=== PATIENT | male | born 1995 ===

== ENCOUNTER 2024-08-30 10:05 | Emergency (ER) | payer OTHER, SELFPAY ==
[2024-08-30 10:20] VITALS: BP 131/69; PULSE 112; RESP 18; TEMP 36.9; O2SAT 96; BMI 38.7
--- NOTE | 2024-08-30 10:45 | CRLHL7_ITS ---
For Patients: As a result of the Century Cures Act, medical imaging exams and procedure reports are released immediately into your electronic medical record. You may view this report before your referring provider. If you have questions, please contact your health care provider. INDICATION: Epigastric and periumbilical pain. COMPARISON: None. TECHNIQUE: CT of the abdomen and pelvis with intravenous contrast. Multiplanar axial, coronal, and sagittal reformats were reconstructed. Contrast: 132 mL Isovue 370. FINDINGS: Lung bases: Normal. Liver: Normal. No mass. Gallbladder and bile ducts: Normal gallbladder. No bile duct dilation. Pancreas: Normal. Spleen: Normal. Adrenal glands: Normal. Kidneys: Normal parenchyma. No cyst or solid mass. No calculi. No urinary tract dilation. Urinary bladder: Normal. Pelvis: No cyst or mass. Vessels: Normal. Bowel: No dilated or inflamed bowel. Normal appendix. Moderate stool burden. Lymph nodes: No adenopathy. Peritoneum: No ascites. Abdominal wall: No hernia. Bones: No fractures. No focal worrisome bone lesions. IMPRESSION: Normal CT of the abdomen and pelvis. Please note that all CT scans at this facility use dose modulation, iterative reconstruction, and/or weight-based dosing when appropriate to reduce radiation dose to as low as reasonably achievable. Dictated by Carla Gordon MD @ 08/30/2024 11:47:26 AM (Electronically Signed)
[2024-08-30] MEDS: 0.9 % SODIUM CHLORIDE 1000 ml 1,000 ML IV (10:59)
[2024-08-30] MEDS: KETOROLAC 15 MG/ML inj IVP (10:59)
[2024-08-30] MEDS: ONDANSETRON 2 MG/ML inj 4 MG IVP (10:59)
--- NOTE | 2024-08-30 11:02 | ED_ITS ---
HPI - General Adult General Date Seen: 08/30/24 Chief complaint: Nausea/Vomiting Stated complaint: vomiting/food poisoning? Time Seen by Provider: 08/30/24 10:43 Source: patient Mode of arrival: ambulatory Limitations: no limitations History of Present Illness HPI narrative: Patient is a 29-year-old male with previous medical history of inguinal hernia repair when he was a child presenting to the emergency department for nausea, vomiting, abdominal pain. States he has not and that he drink anything since then because makes him nauseated and vomited. He still nauseated at this time. He is starting to feel dehydrated. States he has has been divided headache since the symptoms started this morning feel sick previous migraines he has had. He thinks it is from his dehydration. States he is feeling slightly lightheaded at this time. She is also having some abdominal pain worse in the epigastric region but also does around the periumbilical area. The nausea and vomiting started around 02:30 but the abdominal pain started around midnight. No other abdominal surgeries. No on else has been sick around him that he is aware of. Denies diarrhea constipation is to call our intent, fevers, chills. Does not use marijuana. No other concerns noted Related Data Home Medications ?Medication ?Instructions ?Recorded ?Confirmed No Known Home Medications 08/12/24 08/30/24 Allergies Allergy/AdvReac Type Severity Reaction Status Date / Time No Known Drug Allergies Allergy Verified 08/30/24 10:28 Review of Systems Status of ROS: Reports: 10 or more systems reviewed and unremarkable except as noted in History and below [facility] Social History Smoking Status: Never smoker How often do you have a drink containing alcohol: never How often do you have six or more drinks on one occasion: Never AUDIT-C Alcohol total score: 0 Non-prescribed substance use: denies use service: No Exam Narrative: Exam Narrative: Const: Well-nourished, Well-developed, in mild distress Eyes: PERRL, no conjunctival injection, and symmetrical lids HENT: Atraumatic external nose and ears. Moist mucous membranes. Neck: Symmetric, trachea midline, No thyromegaly. CVS: Tachycardic, No murmurs or gallops. Peripheral pulses 2+ and equal in all extremities RESP: Unlabored respiratory effort. Clear to auscultation bilaterally. GI: Tenderness in the epigastric region and periumbilical region. Worse in epigastric. Nondistended, No rebound or guarding. MSK:Extremities w/o deformity, Normal Active ROM Skin: Warm, Dry. No rashes or lesions. Neuro: Normal Muscle tone, No focal neurological deficits. Psych: Awake, Alert, & Oriented x3. Appropriate mood and affect. Const: Vital Signs, click to edit/add: Vital Signs - 24 hr 08/30/24 10:20 Temperature 98.5 F Pulse Rate [Right Pulse Oximeter] 112 H Respiratory Rate 18 Blood Pressure [Ri ght Upper Arm] 131/69 Pulse Oximetry 96 Oxygen Delivery Me thod Room Air Course Vital Signs Vital signs: Initial Vital Signs Temperature 98.5 F 08/30/24 10:20 Temperature Source Temporal Artery Scan 08/30/24 10:20 Pulse Rate 112 H 08/30/24 10:20 Pulse Rhythm Regular 08/30/24 10:20 Pulse Strength 3+ Normal 08/30/24 10:20 Respiratory Rate 18 08/30/24 10:20 Blood Pressure 131/69 08/30/24 10:20 Blood Pressure Mean 89 08/30/24 10:20 Blood Pressure Position Sitting 08/30/24 10:20 Pulse Oximetry 96 08/30/24 10:20 Oxygen Delivery Method Room Air 08/30/24 10:20 Vital Signs Temperature 98.5 F 08/30/24 10:20 Pulse Rate 112 H 08/30/24 10:20 Respiratory Rate 18 08/30/24 10:20 Blood Pressure 131/69 08/30/24 10:20 Pulse Oximetry 96 08/30/24 10:20 Oxygen Delivery Method Room Air 08/30/24 10:20 Temperature 98.5 F 08/30/24 10:20 Pulse Rate 112 H 08/30/24 10:20 Respiratory Rate 18 08/30/24 10:20 Blood Pressure 131/69 08/30/24 10:20 Pulse Oximetry 96 08/30/24 10:20 Oxygen Delivery Method Room Air 08/30/24 10:20 Medications Administered Medications: Discontinued Medications Generic Name Dose Route Start Last Admin Trade Name Freq PRN Reason Stop Dose Admin Sodium Chloride 1,000 mls @ 1,000 mls/hr 08/30/24 10:45 08/30/24 10:59 0.9 % Sodium Chloride 1000 Ml IV 08/30/24 11:44 1,000 mls/hr .Q1H LOULOU Administration Ketorolac Tromethamine 15 mg 08/30/24 10:44 08/30/24 10:59 Ketorolac 15 Mg/Ml Inj IVP 08/30/24 10:45 15 mg ONCE ONE Administration Ondansetron HCl 4 mg 08/30/24 10:44 08/30/24 10:59 Ondansetron 2 Mg/Ml Inj IVP 08/30/24 10:45 4 mg ONCE ONE Administration Medical Decision Making MDM Narrative Medical decision making narrative: Patient is a 29-year-old male presenting for nausea, vomiting, abdominal pain. Differential at this time includes pancreatitis, gastroenteritis, SBO, gallbladder and liver disease, appendicitis. Will order CBC, CMP, urinalysis, COVID/flu/RSV, CT scan with IV contrast. Also given L of fluids 1st possible dehydration along with Toradol for pain and Zofran for nausea. He is also having a headache but this sounds like his previous migraines under not believe imaging is necessary. Will start him off with fluids which may help with his symptoms. Patient did have elevated lactate at 2.0 with his likely related to dehydration as vomiting. CBC and CMP showed no concerning abnormalities. Lipase within normal limits. Viral swabs are negative. He is feeling much better after the medication is CT scan reviewed by myself the radiologist showed no concerning abnormalities. At this time is likely some type of gastroenteritis causing his symptoms. I believe he is safe for discharge and he is agreeable to this plan. Will prescribe him Zofran for his nausea. Lab Data Labs: Lab Results 08/30/24 Range/Units 10:58 WBC 9.47 (4.50-11.00) K/uL RBC 5.68 (4.30-5.90) m/uL Hgb 15.2 (13.5-17.5) gm/dL Hct 45.8 (37.0-53.0) % MCV 81 (80-100) fL MCH 27 (26-34) pg MCHC 33 (32-36) gm/dL RDW Coeff of [place] 13.1 (11.5-15.5) % Plt Count 235 (140-440) K/uL Neut % (Auto) 92.6 H (42.0-72.0) % Lymph % (Auto) 2.4 L (20-44) % [place] % (Auto) 4.1 (0.0-11.0) % Eos % (Auto) 0.7 (0.0-7.0) % Baso % (Auto) 0.1 (0.0-3.0) % Neut # (Auto) 8.80 H (1.7-7.0) K/uL Lymph # (Auto) 0.20 L (0.90-2.90) K/uL [place] # (Auto) 0.40 (0.00-0.90) K/UL Eos # (Auto) 0.07 (0.00-0.50) K/uL Baso # (Auto) 0.01 (0.00-0.30) K/uL Abs Immat Gran (auto) 0.01 (0.00-0.30) K/uL Imm/Tot Granulo (auto) 0.1 % Sodium 137 (135-149) mmol/L Potassium 4.0 (3.6-5.1) mmol/L Chloride 104 (96-114) mmol/L Carbon Dioxide 26 (20-32) mmol/L Anion Gap 7 (7-15) mEq/L BUN 23 (5-24) mg/dL Creatinine 0.7 (0.5-1.5) mg/dL Estimated Creat Clear 163.67 Estimated GFR 130 ml/min Glucose 135 H (60-115) mg/dL Lactate 2.0 H (0.5-1.9) mmol/L Calcium 9.3 (8.4-10.6) mg/dL Total Bilirubin 0.8 (0.1-1.5) mg/dL AST 29 (12-35) U/L ALT 57 H (4-50) U/L Alkaline Phosphatase 92 (40-150) U/L Total Protein 7.6 (6.0-8.3) g/dL Albumin 4.5 (3.3-5.0) g/dL Lipase 58 (23-300) U/L SARS-CoV-2 (PCR) Negative SARS-CoV-2 (Negative) Influenza Type A (PCR) Negative PCR FLU A (Negative) Influenza Type B (PCR) Negative PCR FLU B (Negative) RSV (PCR) Negative PCR RSV (Negative) Imaging Data CT scan abdomen pelvis: Attestation: I have reviewed the pertinent imaging results. Radiologist's impression: Normal CT of the abdomen and pelvis. Please note that all CT scans at this facility use dose modulation, iterative reconstruction, and/or weight-based dosing when appropriate to reduce radiation dose to as low as reasonably achievable. Dictated by Carla Gordon MD @ 08/30/2024 11:47:26 AM Discharge Plan Discharge Clinical Impression: Gastroenteritis Patient Disposition: Home, Self-Care Condition: Improved Instructions: Gastroenteritis (DC) Additional Instructions: Take Tylenol and ibuprofen as needed for pain. Take Zofran as needed for nausea. Make sure to stay well hydrated. Return for new or worsening symptoms. Prescriptions: No Action No Known Home Medications Follow Up/Referrals: Provider,Not a Local [Primary Care Provider] - Stand Alone Forms: [facility] Info Instructions
[2024-08-30 11:18] LABS: Basophils Absolute Auto 0.01 K/uL (0.00-0.30); Basophils Percent Auto 0.1 % (0.0-3.0); Eosinophils Absolute Auto 0.07 K/uL (0.00-0.50); Eosinophils Percent Auto 0.7 % (0.0-7.0); Hematocrit 45.8 % (37.0-53.0); Hemoglobin* 15.2 gm/dL (13.5-17.5); Immature Granulocytes Abs Auto 0.01 K/uL (0.00-0.30); Immature Granulocytes Pct Auto 0.1 %; Lymphocytes Percent Auto 2.4 % (20-44); Mean Corpuscular HGB Conc 33 gm/dL (32-36); Mean Corpuscular Hemoglobin 27 pg (26-34); Mean Corpuscular Volume 81 fL (80-100); Monocytes Percent Auto 4.1 % (0.0-11.0); Neutrophils Percent Auto 92.6 % (42.0-72.0); Platelet Count* 235 K/uL (140-440); RDW Coefficient of Variation % 13.1 % (11.5-15.5); Red Blood Count 5.68 m/uL (4.30-5.90); White Blood Count* 9.47 K/uL (4.50-11.00)
[2024-08-30 11:26] LABS: Albumin* 4.5 g/dL (3.3-5.0); Chloride* 104 mmol/L (96-114); Slide Review Reflex No; Sodium* 137 mmol/L (135-149)
[2024-08-30 11:28] LABS: Creatinine* 0.7 mg/dL (0.5-1.5); Est. Creatinine Clearance* 163.67; Estimated Glomerular Filt Rate 130 ml/min
[2024-08-30 11:29] LABS: Alanine Aminotransferase* 57 U/L (4-50); Alkaline Phosphatase* 92 U/L (40-150); Anion Gap 7 mEq/L (7-15); Aspartate Amino Transferase* 29 U/L (12-35); Bilirubin Total* 0.8 mg/dL (0.1-1.5); Blood Urea Nitrogen* 23 mg/dL (5-24); Calcium* 9.3 mg/dL (8.4-10.6); Carbon Dioxide* 26 mmol/L (20-32); Glucose* 135 mg/dL (60-115); Lipase* 58 U/L (23-300); Total Protein* 7.6 g/dL (6.0-8.3)
[2024-08-30 11:52] LABS: PCR FLU A Negative PCR FLU A (Negative); PCR FLU B Negative PCR FLU B (Negative); PCR RSV Negative PCR RSV (Negative); SARS PCR* Negative SARS-CoV-2 (Negative)
== END 2024-08-30 13:03 | disposition home or self-care (01) ==
PROVIDERS: Emergency Provider Student in an Organized Health Care Education/Training Program
DX: K52.9 Noninfective gastroenteritis and colitis, unspecified (principal)
CPT/HCPCS: 36415; 74177; 80053; 81001; 83605; 83690; 85025; 87631; 96374; 96375; 99284; 99285; J1885; J2405; J7030; Q9967

== ENCOUNTER 2025-08-28 09:00 | Outpatient (CLI) | payer OTHER, SELFPAY | END 2025-08-28 09:01 | disposition home or self-care (01) | PROVIDERS: PCP Nurse Practitioner Family; Visit Provider Nurse Practitioner Family | DX: Z00.00 Encounter for general adult medical examination without abnormal findings (principal); R03.0 Elevated blood-pressure reading, without diagnosis of hypertension; E66.9 Obesity, unspecified | CPT/HCPCS: 80053; 80061 ==